=== PATIENT | female | born 1945 | race Caucasian/White ===

== ENCOUNTER → 2016-07-16 | Outpatient (CLI) | payer OTHER, MEDICARE ==
[2016-07-17 16:35] LABS: BASOPHILS # (AUTO) 0.06 10*3/UL; BASOPHILS % (AUTO) 0.5 % (0-1); EOSINOPHILS % (AUTO) 1.7 % (0-8); HEMATOCRIT 38.5 % (37.0-47.0); HEMOGLOBIN 12.7 g/dL (12.0-16.0); IMM GRAN % (AUTO) 0.3 % (0-5); IMM GRAN# (AUTO) 0.04 10*3/UL; LYMPHOCYTES # (AUTO) 2.56 10*3/uL; LYMPHOCYTES % (AUTO) 21.8 % (10-50); MEAN CORPUSCULAR HEMOGLOBIN 31.1 PG (27-31); MEAN PLATELET VOLUME 10.9 FL (7.4-12.2); MONOCYTES # (AUTO) 1.15 10*3/UL (0.3-0.8); MONOCYTES % (AUTO) 9.8 % (5-15); NEUTROPHILS # (AUTO) 7.74 10*3/UL; NEUTROPHILS % (AUTO) 65.9 % (50-80); RDW COEFFICIENT OF VARIATION 13.4 % (11.5-14.5); RED BLOOD COUNT 4.09 10^6/uL (4.20-5.40); WHITE BLOOD COUNT 11.75 10^3/uL (4.8-10.8)
[2016-07-17 17:13] LABS: PLATELET MORPHOLOGY COMMENT NORMAL MORPHOLOGY (NORM)
[2016-07-17 17:49] LABS: ASPARTATE AMINO TRANSFERASE 30 IU/L (8-39); BILIRUBIN,TOTAL 0.4 mg/dL (0.3-1.2); BLOOD UREA NITROGEN 37 mg/dL (7-22); BUN/CREATININE RATIO 26.42 (6-20); CALCIUM 9.8 mg/dL (8.7-10.7); CHLORIDE 98 meq/L (98-112); CREATININE 1.4 mg/dL (0.50-1.20); GLUCOSE 98 mg/dL (78-110); POTASSIUM 4.4 meq/L (3.8-5.2); SODIUM 138 meq/L (135-145); TOTAL PROTEIN 6.8 g/dL (6.1-8.0)
== END ==
LOC: LAB 10:21
PROVIDERS: ATTEND Physician Assistant Medical
DX: E03.9 Hypothyroidism, unspecified (principal); R53.83 Other fatigue; I10 Essential (primary) hypertension
CPT/HCPCS: 80053; 84443; 85025